=== PATIENT | female | born 1960 | race American Indian/Alaskan Native ===

== ENCOUNTER 2018-11-23 08:12 | Emergency (ER) | payer OTHER ==
--- NOTE | 2018-11-23 09:28 | Emergency Department Report ---
[facility] Chief Complaint: Eye Problems Stated Complaint: FOREIGN OBJECT IN L EYE Time Seen by Provider: 11/23/18 08:37 Duration: 2 Days Side: Left Severity: moderate Symptoms: Yes Eye Itching, Yes Eye Redness, Yes Eye Pain (FB sensation at 9 oclock position), No Purulent Drainage, No Blurred Vision, No Preceding URI, No H/O Allergic Rhinitis, No Contact Lens Use, No Trauma, No Fever Other History: Patient states that she uses false eyelashes and may have scratched the eye without rash or gotten eyelash glue into the left ED Review of Systems ROS: Stated complaint: FOREIGN OBJECT IN L EYE Other details as noted in HPI Comment: All other systems reviewed and negative ED Past Medical Hx - Past Medical History Previous Medical History?: No - Surgical History Past Surgical History?: No - Social History Smoking Status: Current Every Day Smoker Substance Use Type: Alcohol - Medications Home Medications: Home Medications Medication Instructions Recorded Confirmed Last Taken Type Amlodipine Besylate [Norvasc] 5 mg PO DAILY #30 tablet 11/23/18 Unknown Rx Gentamicin 0.3% Ophth Soln 2 drops OP Q4H #1 bottle 11/23/18 Unknown Rx Naphazoline HCl/Pheniramine 10 ml OP BID #1 bottle 11/23/18 Unknown Rx [Naphcon-A Eye Drops] [facility] Exam - Exam General: Vital signs noted. No distress. Alert and acting appropriately. Eye Exam: Left Injection, Both EOMI, Neither Abnormal Pupil, Neither Eye Foreign Body, Neither Lid Foreign Body, Neither Mucous Discharge, Neither Purulent Discharge HEENT: No Nasal Congestion Remainder of HEENT: Normal Lungs: Yes Clear Lung Sounds, Yes Good Air Exchange, No Wheezes, No Stridor, No Cough, No Nasal Flaring, No Retractions, No Use of Accessory Muscles ED Course Vital Signs 11/23/18 08:22 Temperature 97.8 F Pulse Rate 85 Respiratory 22 Rate Blood Pressure 188/106 O2 Sat by Pulse 97 Oximetry ED Medical Decision Making - Medical Decision Making The left upper eyelid was inverted and there is no foreign body present. Patient likely with corneal abrasion given her clinical situation. Patient started on antibiotic drops and this was symptomatically discharged home. Critical care attestation.: If time is entered above; I have spent that time in minutes in the direct care of this critically ill patient, excluding procedure time. ED Disposition Clinical Impression: Hypertensive urgency Cornea abrasion Qualifiers: Encounter type: initial encounter Laterality: left Qualified Code(s): S05.02XA - Injury of conjunctiva and corneal abrasion without foreign body, left eye, initial encounter Disposition: TO HOME OR SELFCARE Is pt being admited?: No Does the pt Need Aspirin: No Condition: Stable Instructions: Hypertension (ED), Corneal Abrasion (ED) Referrals: KATHY ELIZONDO MD [Primary Care Provider] - 3-5 Days Time of Disposition: 09:29
[2018-11-23 10:01] VITALS: BP 140/91
== END 2018-11-23 10:00 | disposition home or self-care (01) ==
LOC: ED 08:12
DX: S05.02XA Injury of conjunctiva and corneal abrasion without foreign body, left eye, initial encounter (principal); I16.0 Hypertensive urgency; F17.200 Nicotine dependence, unspecified, uncomplicated; X58.XXXA Exposure to other specified factors, initial encounter; Y93.89 Activity, other specified; Y92.89 Other specified places as the place of occurrence of the external cause; Y99.8 Other external cause status
CPT/HCPCS: 99282